=== PATIENT | female | born 1955 | race Caucasian/White ===

== ENCOUNTER → 2018-04-07 16:15 | Outpatient (REF) | payer BC, SELFPAY ==
--- NOTE | 2018-04-07 16:00 | PAPFT_PTH ---
PATIENT: Norma Martinez LOC: [facility] U#:[id number] AGE/SX: 69/F ROOM: RE04/07/[address]: Luisa Moreno MD : [id number] BED: DIS: SPEC #: [id number] RECD: 04/07/18 18:01 STATUS: AKIRA UNGER #: [id number] KIMBERLY: 04/07/18 16:[address]: Luisa Moreno DEPT: [facility] Cytology RECD BY: Karly Almendarez ENTERED: 04/07/18 18:02 SP TYPE: PAPFT OTHR DR: Anna De León APRN Tissues: 1 - CX/ENDOCX FOR PAP SMEARS Procedures: PAP THIN PREP/UVM Screening HPV DNA PROBE Comments: [id number]
== END ==
LOC: LBN 16:15
PROVIDERS: PCP Nurse Practitioner Family; Visit Provider Obstetrics & Gynecology
DX: Z12.4 Encounter for screening for malignant neoplasm of cervix (principal); Z11.51 Encounter for screening for human papillomavirus (HPV)
CPT/HCPCS: 88142; 87624

== ENCOUNTER → 2018-05-04 01:22 | Outpatient (CLI) | payer BC, SELFPAY ==
--- NOTE | 2018-05-04 08:00 | DI.REPORT_ITS ---
SYMPTOMS/DIAGNOSIS: SCREENING, Z12.31 MAMMOGRAM: Mammograms were interpreted according to the usual protocol including computer analysis with CAD system, tomosynthesis and C view imaging. Comparison with prior examinations. Breast density C. No suspicious masses or microcalcifications are seen. There has been interval increase in size of the well circumscribed nodule in the central left breast. Ultrasound is recommended for further evaluation. No other suspicious masses or microcalcifications are seen. The skin and axilla are unremarkable. IMPRESSION: Additional left breast ultrasound is recommended for an increase in size of left breast nodule. Category O. Bi-RADS category C. The breasts are heterogeneously dense, which may obscure small masses. FINAL SA ASSESSMENT OF FINDINGS: Negative with benign findings. Category 2. Patient will receive a letter notifying them of these results.
== END ==
PROVIDERS: PCP Nurse Practitioner Family; Visit Provider Obstetrics & Gynecology
DX: Z12.31 Encounter for screening mammogram for malignant neoplasm of breast (principal); R92.8 Other abnormal and inconclusive findings on diagnostic imaging of breast
CPT/HCPCS: 77063; 77067

== ENCOUNTER → 2018-05-05 09:16 | Outpatient (CLI) | payer BC, SELFPAY ==
--- NOTE | 2018-05-05 09:51 | DI.REPORT_ITS ---
SYMPTOM/DIAGNOSIS: F/U MAMMO, INCREASE IN SIZE OF NODULE LEFT BREAST ULTRASOUND: There is a well circumscribed, ovoid cyst just lateral to the nipple which measures 1.7 by 1.8 by 0.7 cm. No color is identified. The cyst appears to correspond in position with the mass recently described in the subareolar portion of the left breast. No solid mass is identified. IMPRESSION: Category 2 examination. Annual screening mammography is recommended. MQSA ASSESSMENT OF FINDINGS: Negative with benign findings. Category 2. Patient will receive a letter notifying them of these results.
== END ==
PROVIDERS: PCP Nurse Practitioner Family; Visit Provider Obstetrics & Gynecology
DX: Z12.31 Encounter for screening mammogram for malignant neoplasm of breast (principal); R92.8 Other abnormal and inconclusive findings on diagnostic imaging of breast; N60.02 Solitary cyst of left breast
CPT/HCPCS: 76642

== ENCOUNTER 2018-12-01 02:11 | Outpatient (CLI) | payer BC, SELFPAY ==
[2018-12-01 11:18] LABS: Anion Gap 7.8 mmol/L (3-11); BUN 18 mg/dL (7-18); CO2 33.2 mmol/L (21.0-32.0); Calcium 9.3 mg/dL (8.5-10.1); Chloride 101 mmol/L (98-107); Cholesterol 201 mg/dL (50-200); Glucose 98 mg/dL (70-100); HDL Cholesterol 65 mg/dL (40-60); LDL CHOLESTEROL 116 mg/dL (<100); Potassium 3.8 mmol/L (3.5-5.1); Sodium 142 mmol/L (136-145); Triglyceride 90 mg/dL (30-150)
[2018-12-02 12:15] LABS: HIV-1/2 Ag & Ab Screen Negative (NEGAT)
[2018-12-02 16:12] LABS: Lipoprotein (a) 120 mg/dL (<=30)
== END 2018-12-01 02:31 ==
PROVIDERS: PCP Nurse Practitioner Family; Visit Provider Nurse Practitioner Family
DX: E78.5 Hyperlipidemia, unspecified (principal); I10 Essential (primary) hypertension; Z11.4 Encounter for screening for human immunodeficiency virus [HIV]
CPT/HCPCS: 36415; 80048; 80061; 83695; 83721; 87389

== ENCOUNTER 2019-03-29 01:38 | Outpatient (CLI) | payer BC, SELFPAY ==
[2019-03-29 09:25] LABS: Calculated LDL 92 mg/dL; Cholesterol 168 mg/dL (50-200); HDL Cholesterol 59 mg/dL (40-60); Triglyceride 89 mg/dL (30-150)
[2019-03-30 14:48] LABS: Lipoprotein (a) 120 mg/dL (<=30)
== END 2019-03-29 01:58 ==
PROVIDERS: PCP Nurse Practitioner Family; Visit Provider Nurse Practitioner Family
DX: E78.41 Elevated Lipoprotein(a) (principal); E78.5 Hyperlipidemia, unspecified; Z00.01 Encounter for general adult medical examination with abnormal findings
CPT/HCPCS: 36415; 80061; 83695; 83721

== ENCOUNTER 2019-05-05 00:36 | Outpatient (CLI) | payer BC, SELFPAY ==
--- NOTE | 2019-05-05 08:08 | DI.MAMMO_ITS ---
SYMPTOM/DIAGNOSIS: SCREENING, Z12.31 MAMMOGRAMS: Mammograms were interpreted according to the usual protocol including computer analysis with CAD system, tomosynthesis and C view imaging. Comparison is made with prior examinations. Breast density, Category C. No suspicious masses or microcalcifications are seen. The nodular density in the central left breast is stable. The skin and axilla are unremarkable. IMPRESSION: No evidence for malignancy. Yearly mammography is recommended. Category 2. MQSA ASSESSMENT OF FINDINGS: Negative with benign findings. Category 2. Patient will receive a letter notifying them of these results. Bi-RADS category C. The breasts are heterogeneously dense, which may obscure small masses.
== END 2019-05-05 00:56 ==
PROVIDERS: PCP Nurse Practitioner Family; Visit Provider Obstetrics & Gynecology
DX: Z12.31 Encounter for screening mammogram for malignant neoplasm of breast (principal)
CPT/HCPCS: 77063; 77067

== ENCOUNTER 2020-05-16 02:22 | Outpatient (CLI) | payer BC, SELFPAY ==
[2020-05-16 08:26] LABS: Anion Gap 4.1 mmol/L (3-11); BUN 18 mg/dL (7-18); CO2 32.9 mmol/L (21.0-32.0); CREATININE 0.68 mg/dL (0.55-1.02); Calculated LDL 128 mg/dL (<100); Chloride 100 mmol/L (98-107); Cholesterol 207 mg/dL (<200); Glucose 97 mg/dL (74-106); HDL Cholesterol 60 mg/dL (40-60); Potassium 3.7 mmol/L (3.5-5.1); Sodium 137 mmol/L (136-145); Triglyceride 95 mg/dL (<150)
[2020-05-17 16:43] LABS: Lipoprotein (a) 145 mg/dL (<=30)
== END 2020-05-16 02:42 ==
PROVIDERS: PCP Nurse Practitioner Family; Visit Provider Nurse Practitioner Family
DX: I10 Essential (primary) hypertension (principal); E78.5 Hyperlipidemia, unspecified; E78.41 Elevated Lipoprotein(a)
CPT/HCPCS: 36415; 80048; 80061; 83695

== ENCOUNTER 2020-05-22 00:36 | Outpatient (CLI) | payer BC, SELFPAY ==
--- NOTE | 2020-05-22 07:50 | DI.MAMMO_ITS ---
EXAM: MG MAMMO SCREENING CLINICAL HISTORY: screening TECHNIQUE: Mammograms were interpreted according to the usual protocol including computer analysis w [facility] CAD system, tomosynthesis and C-view imaging. COMPARISON: FINDINGS: The breasts are heterogeneously dense. There is 23 millimeter in diameter well-circumscribed lobulat ed left breast mass seen centrally which is unchanged in appearance comparison with previous examinat ion of April 2019. no new mass or clumped microcalcification identified in either breast. No other significant change. IMPRESSION: No specific evidence of malignancy at this time. Follow-up mammogram requested in 12 months to derrell w stable probably benign left breast mass BI-RADS Cat 2 - Benign Findings Breast Density - Category C - Heterogeneously dense
== END 2020-05-22 00:56 ==
PROVIDERS: PCP Nurse Practitioner Family; Visit Provider Nurse Practitioner Family
DX: Z12.31 Encounter for screening mammogram for malignant neoplasm of breast (principal); R92.2 Inconclusive mammogram; N63.20 Unspecified lump in the left breast, unspecified quadrant
CPT/HCPCS: 77063; 77067

== ENCOUNTER 2020-05-24 04:24 | Outpatient (CLI) | payer BC, SELFPAY ==
[2020-05-24 08:23] LABS: ALT 33 U/L (14-59); AST 20 U/L (15-37); Alkaline Phosphatase 50 U/L (46-116); Bilirubin, Direct 0.18 mg/dL (0.00-0.20); Total Protein 6.9 g/dL (6.4-8.2)
== END 2020-05-24 04:44 ==
PROVIDERS: PCP Nurse Practitioner Family; Visit Provider Nurse Practitioner Family
DX: Z51.81 Encounter for therapeutic drug level monitoring (principal)
CPT/HCPCS: 36415; 80076

== ENCOUNTER 2020-11-18 12:20 | Emergency (ER) | payer OTHER, SELFPAY ==
[2020-11-18 12:27] VITALS: BP 122/75; PULSE 100; RESP 18; TEMP 37.1; O2SAT 96
--- NOTE | 2020-11-18 12:30 | DI.RAD_ITS ---
EXAM: XR ANKLE LT COMPLETE CLINICAL HISTORY: pain, swelling TECHNIQUE: COMPARISON: No exams were available for comparison FINDINGS: Three views were obtained. There is a spiral fracture of the distal fibula extending into the region of the tibiofibular joint. There is an associated posterior malleolar fracture of the tibia which i s mildly displaced. The ankle mortise appears fairly well maintained. Nondisplaced medial malleolar fracture not excluded. IMPRESSION: Bimalleolar versus trimalleolar fracture, additional radiographic views or CT may be obtained to eval uate possible very subtle medial malleolar fracture. RADIATION DOSE DELIVERED: Total DLP
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
[2020-11-18] MEDS: Acetaminophen 325 MG TAB 650 MG PO (13:08)
--- NOTE | 2020-11-18 13:57 | DI.VRAD_ITS ---
PROCEDURE INFORMATION: Exam: XR Left Ankle Exam date and time: 11/18/2020 1:34 PM Age: 64 years old Clinical indication: Injury or trauma; Fall; Blunt trauma; Ankle; Left TECHNIQUE: Imaging protocol: XR Left ankle. Views: 3 or more views. COMPARISON: No relevant prior studies available. FINDINGS: Bones/joints: There is an oblique fracture of the distal fibula. There is slight lateral displacement of the distal fracture fragment. There is fracture of the distal tibia/ posterior malleolus. There is possible subtle nondisplaced fracture of the medial malleolus. Joint effusion is seen in the ankle Soft tissues: There is marked soft tissue swelling of the ankle. IMPRESSION: Fracture of the distal fibula, and the posterior malleolus. Probable subtle nondisplaced fracture medial malleolus. Marked soft tissue swelling Dictated and Authenticated by: Amy Galvez MD. Ordering:YENI Hidalgo MD
[2020-11-18 15:08] VITALS: BP 114/68; PULSE 97; RESP 18; O2SAT 95
== END 2020-11-18 15:06 | disposition home or self-care (01) ==
PROVIDERS: Emergency Provider Student in an Organized Health Care Education/Training Program; PCP Nurse Practitioner Family
DX: S82.842A Displaced bimalleolar fracture of left lower leg, initial encounter for closed fracture (principal); V86.52XA Driver of snowmobile injured in nontraffic accident, initial encounter
CPT/HCPCS: 29515; 99283; 73610

== ENCOUNTER 2020-11-20 11:37 | Outpatient (CLI) | payer OTHER, SELFPAY ==
--- NOTE | 2020-11-20 11:30 | DI.RAD_ITS ---
EXAM: XR ANKLE LT COMPLETE CLINICAL HISTORY: left ankle pain TECHNIQUE: COMPARISON: CR,XR XR ANKLE LT COMPLETE from 11/18/2020 FINDINGS: Three views were obtained. The ankle is in cast. Previously described tibiofibular fracture is agai n noted, no gross interval change in alignment of fracture fragments comparison with examination of M arch 14th. IMPRESSION: RADIATION DOSE DELIVERED: Total DLP
--- NOTE | 2020-11-20 11:30 | DI.RAD_ITS ---
EXAM: XR WRIST LT COMPLETE CLINICAL HISTORY: wrist pain TECHNIQUE: COMPARISON: No exams were available for comparison FINDINGS: Three views were obtained. Carpal alignment appears within normal limits. No focal bony abnormality seen. IMPRESSION: Negative examination of the wrist. RADIATION DOSE DELIVERED: Total DLP
== END 2020-11-20 11:38 | disposition home or self-care (01) ==
LOC: DIORS 11:38
PROVIDERS: PCP Nurse Practitioner Family; Referring Provider Nurse Practitioner Family; Visit Provider Student in an Organized Health Care Education/Training Program
DX: M25.532 Pain in left wrist (principal); S82.392A Other fracture of lower end of left tibia, initial encounter for closed fracture; S82.492A Other fracture of shaft of left fibula, initial encounter for closed fracture
CPT/HCPCS: 73110; 73610

== ENCOUNTER 2020-11-20 12:45 | Outpatient (CLI) | payer OTHER, SELFPAY ==
[2020-11-20 13:18] LABS: Source Nasal/Nares
[2020-11-20 21:41] LABS: COVID-19 PCR Negative (Negative)
== END 2020-11-20 12:46 | disposition home or self-care (01) ==
PROVIDERS: PCP Nurse Practitioner Family; Visit Provider Student in an Organized Health Care Education/Training Program
DX: Z20.822 Contact with and (suspected) exposure to COVID-19 (principal); Z01.818 Encounter for other preprocedural examination
CPT/HCPCS: 87635

== ENCOUNTER 2020-11-23 11:03 | Day surgery (SDC) | payer OTHER, SELFPAY ==
--- NOTE | 2020-11-23 11:00 | DI.RAD_ITS ---
EXAM: XR ANKLE LT 2V CLINICAL HISTORY: LEFT ANKLE FRACTURE. TECHNIQUE: 2D and realtime digital imaging was performed. COMPARISON: CR XR ANKLE LT COMPLETE from 11/20/2020 CR XR ANKLE LT COMPLETE from 11/20/2020 FINDINGS: Fluoroscopy was provided in the OR for Dr. Denis. Hard copy images show placement of a screw and deniz te over the distal fibula for fracture fixation. The fracture alignment appears anatomic. Please see procedure note for details. RADIATION DOSE DELIVERED: Fluoro time 30.3 seconds. 0.62 mGy cumulative dose.
[2020-11-23 11:19] VITALS: BP 135/73; PULSE 94; RESP 19; TEMP 36.1; O2SAT 95
[2020-11-23] MEDS: Lactated Ringers 1,000 ML 100 ML IV (11:45)
[2020-11-23] MEDS: ceFAZolin 2 GM/50 ML BAG IVPB (12:24)
--- NOTE | 2020-11-23 14:12 | PDOC.DSDIS_ITS ---
Discharge Plan Disposition Patient Disposition: HOME Condition: Stable Discharge Details Reason For Visit: Left ankle surgery Attending Provider: Abner Denis Primary Care Provider: Anna De León Home Meds and New Rx's Prescriptions: New aspirin 81 mg tablet,delayed release (DR/EC) 81 mg PO BID 30 Days Qty: 60 RF: 0 naproxen 250 mg tablet 250 - 500 mg PO BID PRN (Reason: Moderate pain or swelling) Qty: 60 RF: 0 oxycodone 5 mg tablet 5 - 10 mg PO Q4H PRN (Reason: moderate to severe pain) Qty: 16 RF: 0 Continued Estring 2 mg (7.5 mcg /24 hour) ring 1 vag ring [id number] [id number] Qty: 1 RF: 4 ezetimibe [Zetia] 10 mg tablet 10 mg PO DAILY Qty: 90 RF: 3 calcium carb and citrate-vitD3 1 EACH tablet extended release 1 ea PO DAILY RF: 0 Probiotic 1 EACH capsule 2 ea PO DAILY RF: 0 Varicella-Zoster Ge/As01b/Pf [Shingrix Vial Kit] 50 MCG INJ 50 mcg IM ONCE Qty: 1 RF: 1 atorvastatin 80 mg tablet 80 mg PO DAILY Qty: 90 RF: 3 lisinopril 10 mg tablet 10 mg PO DAILY Qty: 90 RF: 3 estradiol 10 mcg tablet 10 mcg VG ONCE PRN (Reason: vaginal atrophy) Qty: 10 RF: 4 hydrochlorothiazide 25 mg tablet 25 mg PO QAM Qty: 90 RF: 3 Discontinued aspirin 81 MG tablet,delayed release (DR/EC) 81 mg PO DAILY RF: 0 Discharge Instructions Additional Instructions: Surgery: Left ankle open reduction internal fixation Activity: Non-weightbearing as best possible with crutches or walker. Recommend elevation to minimize swelling and discomfort. Please perform daily motion to all toes to prevent stiffness and increase circulation. You may rest the splint on the ground for stance and balance. A physical therapy prescription will be provided separately in the office at follow-up if needed. Prescriptions: Aspirin 81 mg take 1 twice daily to prevent a blood clot 30 days Naproxen 250 mg take 1-2 every 12 hours with a meal as needed for moderate pain Oxycodone 5 mg take 1-2 every 4-6 hours as needed for severe pain You may use [id number] Tylenol (acetaminophen) as needed for mild pain. These pain medications may be taken all at once or in different combinations as needed. Also, recommend Colace (docusate) as a stool softener as surgery and pain medicine cause constipation. Dressings: Leave splint and dressing in place until follow-up. Keep clean and dry at all times. Follow-up: 10-[address] Denis Let us know right away if you develop any redness, drainage, fevers, chest pain, or trouble breathing. Do not drink alcohol or drive for at least 24 hours after anesthesia. Please call the office during business hours with any questions or concerns. Referrals: Abner Denis MD [ [facility] STAFF PHYSICIAN] - Equipment/Supplies: Splint Activity:: Elevate Remove Dressings/Wound Care:: Do Not Remove Shower/Bathe:: Cover Diet:: As Tolerated Discharge Orders Discharge Orders: Discharge Order (Routine); Ordered 11/23/20 Ordered By: Abner Denis DS: Diagnosis Discharge Diagnosis (1) Contusion of left wrist, initial encounter: Status: Acute (2) Bimalleolar fracture of left ankle: Status: Acute
--- NOTE | 2020-11-23 14:13 | W.PM.OP ---
Date of service: 11/23/20 Time of Service: 13:00 Operative Note Operative Note DATE OF PROCEDURE: 11/23/20 PRE-OP DIAGNOSIS: Left john ankle fx: Lateral and Posterior malleoli POST-OP DIAGNOSIS: same PROCEDURE: 1. Left john ankle ORIF lateral malleolus, CPT # 94081 2. Manual dorsiflexon external rotation stress radiographs of ankle joint for syndesmotic testing, CPT# 27423 SURGEON: Abner Denis TRAIN STATION AGENT: Jimena Davison ANESTHESIA TYPE: Local By Surgeon, General:No Airway and Primary Nerve Block Refer to Anesthesia Record ESTIMATED BLOOD LOSS: 10 TOURNIQUET TIME: 0 COMPLICATIONS: None Patient was transported to: PACU Patient's condition: stable Implants: Synthes 6-hole 1/3 tubular plate with 3x proximal 3.5mm cortex screws, 1x central 3.5mm cortex lag screw, and 2x distal 4.0mm cancellous screws Indications: Please see complete medical record for details. Findings: Stable syndesmosis. Posterior malleolus appropriately reduced after restoring fibular length. Procedure Description: In the operating room, general anesthesia was induced. The patient was positioned supine on the operating room table. All bony prominences were well-padded. Preoperative antibiotics were administered. The ankle was prepped and draped in the usual sterile fashion. The correct patient, procedure, and side of the procedure were all verified prior to incision. 20cc of 1% lidocaine was preinjected about the planned lateral longitudinal incision site, which was centered about the distal fibula fracture. Sharp dissection was carried down to bone with care to protect and retract transverse neurovacular structures. The periosteum was sharply elevated off the fracture ends, fracture site debrided of soft tissue, and the long oblique fracture reduced in a near anatomic fashion using bone clamps. The reduction was optimized for fibular length and rotation confimed under direct visualization and fluoroscopy. Intact perioseum was sharpy released from the lateral margin of the fibula for planned plate placement. An appropriately lengthed plate was chosen and applied to the lateral fibula slightly anterioly accounting for patient anatomy. A cortex screw was place proximal to the fracture site to reduce plate to bone and provisionally hold the plate centered proxmally and distally. The hole over the fracture was then drilled for a lag screw by technique for placement of a lag screw through the plate and across the fracture site. Both screws were then tightened. Direct visualization and fluoroscopy confirmed excellent reduction of fibula fracture and appropriate hardware placement. The ankle was then held in dorsiflexion and mortise comparison views obtained with manual external rotation stress applied, which showed no medial clear space widenening or loss of tib fib overlap so the decision was made to omit any syndesmotic fixation. Lateral XRs showed improved, good reduction of the small posterior malleolus fracture after reducing the fibula. The remaining two distal holes at the level of the tib fib joint were then drilled and filled with cancellous screws. The remaining two proximal holes were drilled and filed with bicortical cortex screws. Final XRs showed excellent alignment of the fractures and appropriate hardware placement. The wound was copiously irrigated with normal saline. Deep tissue was closed over the plate using 2-0 monocryl. Superficial tissue was irrigated. Subq was closed using 2-0 monocryl in a burried interrupted fashion. Skin closed using 3-0 nylon in horizontal mattress fashion. Incision covered with xeroform, dry 4x4 gauze, ABD pad, and wrapped in sterile soft roll. A short leg plaster splint was then applied about the ankle. The patient awoke from anesthesia without complication and was transferred to the recovery room in a stable condition.
[2020-11-23 14:39] VITALS: BP 115/75; PULSE 67; RESP 18; TEMP 36.1; O2SAT 99
[2020-11-23] MEDS: Acetaminophen 500 MG TAB 1000 MG PO (14:53)
[2020-11-23] MEDS: oxyCODONE 5 MG TAB PO (14:54)
[2020-11-23] MEDS: Bupivacaine 0.25% Pres-Free 30 ML VIAL (16:55)
[2020-11-23] MEDS: Bupivacaine LIPOSOME/PF 133 MG/10 ML VIAL IJ (16:56)
== END 2020-11-23 16:18 | disposition home or self-care (01) ==
PROVIDERS: PCP Nurse Practitioner Family; Visit Provider Student in an Organized Health Care Education/Training Program
PROC: (CPT 27814; principal; 2020-11-23 12:15)
DX: S97.02XA Crushing injury of left ankle, initial encounter (principal); S82.842A Displaced bimalleolar fracture of left lower leg, initial encounter for closed fracture; V86.92XA Unspecified occupant of snowmobile injured in nontraffic accident, initial encounter; G89.18 Other acute postprocedural pain
CPT/HCPCS: 27814; 77071; C1713; 76000; 76942; 73600; J0690; J1100; J1885; J2250; J2405; J2704

== ENCOUNTER 2020-12-05 09:59 | Outpatient (CLI) | payer OTHER, SELFPAY ==
--- NOTE | 2020-12-05 09:00 | DI.RAD_ITS ---
EXAM: XR ANKLE LT COMPLETE CLINICAL HISTORY: ORIF L ankle. TECHNIQUE: 2D digital imaging was performed. COMPARISON: CR XR ANKLE LT COMPLETE from 11/20/2020 FINDINGS: There has been interval ORIF with placement of a lateral fixation plate across the fibular fracture s ite secured by a total of 6 screws. There is satisfactory alignment of the fracture fragments. No w idening of the ankle mortise noted. Medial malleolus is intact. Posterior malleolar fracture appear s unchanged and without further displacement. IMPRESSION: DATA REPOSITORY: RADIATION DOSE DELIVERED:
== END 2020-12-05 10:00 | disposition home or self-care (01) ==
LOC: DIORS 09:59
PROVIDERS: PCP Nurse Practitioner Family; Referring Provider Nurse Practitioner Family; Visit Provider Physician Assistant
DX: S82.842D Displaced bimalleolar fracture of left lower leg, subsequent encounter for closed fracture with routine healing (principal)
CPT/HCPCS: 73610

== ENCOUNTER 2021-01-02 09:42 | Outpatient (CLI) | payer OTHER, SELFPAY ==
--- NOTE | 2021-01-02 09:45 | DI.RAD_ITS ---
EXAM: XR ANKLE LT COMPLETE CLINICAL HISTORY: f/u. Fracture TECHNIQUE: 2D digital imaging was performed. COMPARISON: CR XR ANKLE LT COMPLETE from 12/05/2020 FINDINGS: Lateral fixation plate across the distal fibular fracture site remains stable. Fracture line faintly visible. No displacement. Posterior malleolus fracture is also again noted with some healing and n o displaced and. Medial malleolus intact as is the talar dome. There is no widening of the mortise. IMPRESSION: DATA REPOSITORY: RADIATION DOSE DELIVERED:
== END 2021-01-02 09:43 | disposition home or self-care (01) ==
LOC: DIORS 09:42
PROVIDERS: PCP Nurse Practitioner Family; Referring Provider Nurse Practitioner Family; Visit Provider Student in an Organized Health Care Education/Training Program
DX: S82.492D Other fracture of shaft of left fibula, subsequent encounter for closed fracture with routine healing (principal); S82.842D Displaced bimalleolar fracture of left lower leg, subsequent encounter for closed fracture with routine healing
CPT/HCPCS: 73610

== ENCOUNTER 2021-02-06 09:35 | Outpatient (CLI) | payer OTHER, SELFPAY ==
--- NOTE | 2021-02-06 09:15 | DI.RAD_ITS ---
Exam(s) XR ANKLE LT COMPLETE EXAM: XR ANKLE LT COMPLETE CLINICAL HISTORY: f/u. TECHNIQUE: 2D digital imaging was performed. COMPARISON: CR XR ANKLE LT COMPLETE from 11/20/2020 CR XR ANKLE LT COMPLETE from 12/05/2020 CR XR ANKLE LT COMPLETE from 01/02/2021 FINDINGS: BONES: There are stable post operative changes present. No new fracture or dislocation. The posterio r malleolar and distal fibular fractures appear healed. There is mild disuse osteopenia present. JOINTS: The joint spaces are well maintained. No joint effusion is present. SOFT TISSUE: Mild soft tissue swelling of ankle. IMPRESSION: Stable postoperative changes. DATA REPOSITORY: RADIATION DOSE DELIVERED:
== END 2021-02-06 09:36 | disposition home or self-care (01) ==
LOC: DIORS 09:35
PROVIDERS: PCP Nurse Practitioner Family; Referring Provider Nurse Practitioner Family; Visit Provider Student in an Organized Health Care Education/Training Program
DX: S82.842D Displaced bimalleolar fracture of left lower leg, subsequent encounter for closed fracture with routine healing (principal); M79.89 Other specified soft tissue disorders
CPT/HCPCS: 73610

== ENCOUNTER 2021-04-29 09:53 | Outpatient (REF) | payer OTHER, SELFPAY ==
--- NOTE | 2021-04-29 08:15 | PAPFT_PTH ---
PATIENT: Norma Martinez LOC: [facility] U#:[id number] AGE/SX: 65/F ROOM: RE04/29/[address]: ANDERSON Haider : [id number] BED: DIS: 04/29/2021 SPEC #: [id number] RECD: 04/29/21 12:55 STATUS: AKIRA REQ #: [id number] KIMBERLY: 04/29/21 08:[address]: Maria Teresa Kinney DEPT: [facility] Cytology RECD BY: Karly Almendarez ENTERED: 04/29/21 12:55 SP TYPE: PAPFT OTHR DR: Anna De León APRN Tissues: 1 - CX/ENDOCX FOR PAP SMEARS Procedures: PAP THIN PREP/UVM Screening HPV DNA PROBE Comments: [id number]
== END 2021-04-29 09:54 | disposition home or self-care (01) ==
LOC: LBN 09:53
PROVIDERS: PCP Nurse Practitioner Family; Visit Provider Nurse Practitioner Family
DX: Z12.4 Encounter for screening for malignant neoplasm of cervix (principal); Z11.51 Encounter for screening for human papillomavirus (HPV); Z01.419 Encounter for gynecological examination (general) (routine) without abnormal findings
CPT/HCPCS: 88142; 87624

== ENCOUNTER 2021-05-23 02:05 | Outpatient (CLI) | payer OTHER, SELFPAY ==
--- NOTE | 2021-05-23 10:30 | DI.MAMMO_ITS ---
Exam(s) MAMMO SCREENING EXAM: MAMMO SCREENING CLINICAL HISTORY: screening TECHNIQUE: Bilateral full field digital CC and MLO mammographic images were obtained with 3D tomosyn thesis and utilizing computer aided detection (CAD). COMPARISON: Available for comparison. FINDINGS: Masses/Architectural Distortion: None seen. There is a stable well-circumscribed nodule in the centra l outer left breast. Microcalcifications: No suspicious pleomorphic-type are seen. Skin Thickening/Nipple Retraction: None. IMPRESSION: 1. No significant interval change with no specific features of malignancy noted. 2. Unless there is more urgent need, screening mammography is recommended, as per [place] [employer] guidelines. BI-RADS Category 2 - Benign Findings Breast Density - Category C - Heterogeneously dense Breast density category C or D implies that the patient has dense breast tissue. Dense breast tissue is very common and is not abnormal but dense breast tissue can make it harder to find cancer on a ma mmogram. Also, dense breast tissue may increase their breast cancer risk. This information about the result of the mammogram report was provided to the patient to raise their awareness. Use this report when you speak with the patient about their risks for breast cancer, which includes their family hist ory. At that time, you may recommend for more screening tests (Ultrasound or MRI) as they might be us eful based on their risk. A negative radiographic report should not delay biopsy if a dominant or clinically suspicious mass is present. Up to ten percent of cancers are not identified on mammography. A negative report may reinforce clinical impression. Adenosis and dense breasts may obscure an underlying neoplasm. False positive reports average 6 to 10%. Patient will receive a letter notifying them of these results.
== END 2021-05-23 02:25 ==
PROVIDERS: PCP Nurse Practitioner Family; Visit Provider Nurse Practitioner Family
DX: Z12.31 Encounter for screening mammogram for malignant neoplasm of breast (principal)
CPT/HCPCS: 77063; 77067

== ENCOUNTER 2021-07-09 02:16 | Outpatient (CLI) | payer OTHER, SELFPAY ==
[2021-07-09 09:08] LABS: Albumin 4.2 g/dL (3.4-5.0); Alkaline Phosphatase 58 U/L (46-116); BUN 21 mg/dL (7-18); Bilirubin, Total 0.9 mg/dL (0.2-1.0); CO2 31.4 mmol/L (21.0-32.0); CREATININE 0.6 mg/dL (0.55-1.02); Calculated LDL 68 mg/dL (<100); Chloride 103 mmol/L (98-107); Cholesterol 141 mg/dL (<200); Glucose 96 mg/dL (74-106); HDL Cholesterol 63 mg/dL (40-60); Potassium 3.7 mmol/L (3.5-5.1); Sodium 141 mmol/L (136-145); Triglyceride 54 mg/dL (<150)
[2021-07-09 09:09] LABS: ALT 32 U/L (14-59); AST 17 U/L (15-37); Anion Gap 6.6 mmol/L (3-11)
[2021-07-11 11:22] LABS: Lipoprotein (a) 303 nmol/L (<75)
== END 2021-07-09 02:17 | disposition home or self-care (01) ==
LOC: LBO 02:16
PROVIDERS: PCP Nurse Practitioner Family; Visit Provider Nurse Practitioner Family
DX: E78.5 Hyperlipidemia, unspecified; E78.41 Elevated Lipoprotein(a); I10 Essential (primary) hypertension
CPT/HCPCS: 36415; 80053; 80061; 83695

== ENCOUNTER → 2022-05-26 02:43 | Outpatient (CLI) | payer MEDICARE, BC, SELFPAY ==
--- NOTE | 2022-05-26 12:15 | DI.MAMMO_ITS ---
Exam(s) MAMMO SCREENING EXAM: MAMMO SCREENING CLINICAL HISTORY: screening TECHNIQUE: Mammograms were interpreted according to the usual protocol including computer analysis w [employer] CAD system, tomosynthesis and C-view imaging. COMPARISON: 2012 through 2020 FINDINGS: The breasts are composed of heterogeneously dense fibroglandular densities, Breast Density category C . No suspicious masses or suspicious microcalcifications are seen. A smoothly marginated nodule is aga in noted in the central left breast found previously to represent a cyst by ultrasound No skin thickening or abnormal axillary lymph nodes are seen. There has been no significant change from prior exams. IMPRESSION: BI-RADS Cat 2 - Benign Findings Yearly screening mammography is recommended. Breast Density Category C, heterogeneously Dense. The mammogram demonstrates the patient's breast tissue is dense. Dense breast tissue is very common a nd is not abnormal but dense breast tissue can make it harder to find cancer on a mammogram. Also, de nse breast tissue may increase breast cancer risk. This information about the result of the mammogram report was provided to the patient to raise their awareness. Use this report when you speak with the patient about their risks for breast cancer, which includes their family history. At that time, you may recommend additional screening tests (Ultrasound or MRI) as they might be useful based on their r isk. A negative radiographic report should not delay biopsy if a dominant or clinically suspicious mass is present. Up to ten percent of cancers are not identified on mammography. A negative report may reinforce clinical impression. Adenosis and dense breasts may obscure an underlying neoplasm. False positive reports average 6 to 10%.
== END ==
PROVIDERS: PCP Nurse Practitioner Family; Visit Provider Nurse Practitioner Family
DX: Z12.31 Encounter for screening mammogram for malignant neoplasm of breast (principal); R92.8 Other abnormal and inconclusive findings on diagnostic imaging of breast
CPT/HCPCS: 77063; 77067

== ENCOUNTER 2022-07-16 03:33 | Outpatient (CLI) | payer MEDICARE, BC, SELFPAY ==
[2022-07-16 08:14] LABS: ALT 27 U/L (14-59); AST 18 U/L (15-37); Albumin 4.2 g/dL (3.4-5.0); Alkaline Phosphatase 70 U/L (46-116); Anion Gap 6.5 mmol/L (3-11); BUN 19 mg/dL (7-18); Bilirubin, Total 1.2 mg/dL (0.2-1.0); CO2 32.5 mmol/L (21.0-32.0); CREATININE 0.7 mg/dL (0.55-1.02); Calcium 9.4 mg/dL (8.5-10.1); Calculated LDL 60 mg/dL (<100); Chloride 102 mmol/L (98-107); Cholesterol 141 mg/dL (<200); Estimated GFR 95.92 (mL/min/1.73m2); Glucose 101 mg/dL (74-106); HDL Cholesterol 68 mg/dL (40-60); Potassium 4.2 mmol/L (3.5-5.1); Sodium 141 mmol/L (136-145); Total Protein 7.6 g/dL (6.4-8.2); Triglyceride 68 mg/dL (<150)
== END 2022-07-16 03:34 | disposition home or self-care (01) ==
LOC: LBO 03:33
PROVIDERS: PCP Nurse Practitioner Family; Visit Provider Nurse Practitioner Family
DX: E78.5 Hyperlipidemia, unspecified (principal); I10 Essential (primary) hypertension; Z13.1 Encounter for screening for diabetes mellitus
CPT/HCPCS: 36415; 80053; 80061

== ENCOUNTER 2022-07-23 17:56 | Outpatient (REF) | payer MEDICARE, BC, SELFPAY ==
[2022-07-23 18:38] LABS: ALT 28 U/L (14-59); AST 20 U/L (15-37); Albumin 4.1 g/dL (3.4-5.0); Alkaline Phosphatase 60 U/L (46-116); Bilirubin, Direct 0.2 mg/dL (0.0-0.2); Bilirubin, Total 1.3 mg/dL (0.2-1.0); Total Protein 7.4 g/dL (6.4-8.2)
== END 2022-07-23 17:57 | disposition home or self-care (01) ==
LOC: LBN 17:56
PROVIDERS: PCP Nurse Practitioner Family; Visit Provider Nurse Practitioner Family
DX: R79.89 Other specified abnormal findings of blood chemistry (principal)
CPT/HCPCS: 80076

== ENCOUNTER 2022-08-07 04:01 | Outpatient (CLI) | payer MEDICARE, BC, SELFPAY ==
[2022-08-07 14:33] LABS: Abs Immature Grans 0.02 10^3/uL (0.0-0.06); Absolute Basophil Count 0.11 10^3/uL (0.0-0.2); Absolute Eosinophil Count 0.29 10^3/uL (0.0-0.7); Absolute Lymphocyte Count 3.07 10^3/uL (1.2-3.4); Absolute Monocyte Count 0.57 10^3/uL (0.1-0.8); Absolute Neutrophil Count 5.15 10^3/uL (1.2-6.7); Basophils % 1.2; Eosinophils % 3.1; HCT 41.6 % (36.0-46.0); HGB 13.6 g/dL (11.2-15.7); Immature Grans % 0.2; Lymphocytes % 33.3; MCH 29.5 pg (27.0-33.0); MCHC 32.7 % (32.0-36.0); MCV 90 fL (80-95); MPV 9.1 fL (8.0-11.0); Monocytes % 6.2; Platelet Count 261 10^3/uL (130-400); RBC 4.61 10^6/uL (3.93-5.22); RDW 11.7 % (11.7-14.6); RDW-SD 38.5 fL; Reticulocyte 1.2 % (0.5-2.4); WBC 9.21 10^3/uL (4.4-10.8)
[2022-08-07 15:23] LABS: LDH 167 U/L (81-234)
== END 2022-08-07 04:02 | disposition home or self-care (01) ==
PROVIDERS: PCP Nurse Practitioner Family; Visit Provider Nurse Practitioner Family
DX: E80.6 Other disorders of bilirubin metabolism (principal); I10 Essential (primary) hypertension; E78.5 Hyperlipidemia, unspecified; R79.89 Other specified abnormal findings of blood chemistry
CPT/HCPCS: 36415; 83615; 85025; 85045

== ENCOUNTER 2022-09-12 01:06 | Outpatient (CLI) | payer MEDICARE, BC, SELFPAY ==
--- NOTE | 2022-09-12 07:45 | DI.DEXA_ITS ---
Exam(s) XR DEXA BONE DENSITY W/WO ASTON EXAM: XR DEXA BONE DENSITY W/WO ASTON CLINICAL HISTORY: screening for osteoporosis IN POSTMENOPAUSAL WOMAN,Z78.0 TECHNIQUE: [employer] C densitometer analysis of left hip, lumbar spine and left forearm. COMPARISON: No exams were available for comparison FINDINGS: Lateral view of the thoracic and lumbar spine shows no evidence of compression fractures. Bone mineral density measurements of the lumbar spine correspond to a total T-score of -2.3, in the osteopenic range. Bone mineral density measurements of the left hip correspond to a total T-score of -2.3. The femora l neck T-score is -3.4, in the osteoporotic range.. The right forearm bone mineral density measurements correspond to a T-score of the distal 3rd of -3.0 , in the osteoporotic range. . IMPRESSION: Osteoporosis of the left hip and right forearm. Osteopenia of the lumbar spine.
== END 2022-09-12 01:26 ==
LOC: DI 01:07
PROVIDERS: PCP Nurse Practitioner Family; Visit Provider Nurse Practitioner Family
DX: M81.0 Age-related osteoporosis without current pathological fracture (principal); M85.88 Other specified disorders of bone density and structure, other site; Z78.0 Asymptomatic menopausal state
CPT/HCPCS: 77080

== ENCOUNTER 2023-07-29 03:55 | Outpatient (CLI) | payer MEDICARE, BC, SELFPAY ==
[2023-07-29 09:10] LABS: ALT 84 U/L (14-59); AST 45 U/L (15-37); Alkaline Phosphatase 48 U/L (46-116); Anion Gap 4.9 mmol/L (3-11); BUN 20 mg/dL (7-18); Bilirubin, Total 0.9 mg/dL (0.2-1.0); CO2 31.1 mmol/L (21.0-32.0); CREATININE 0.6 mg/dL (0.55-1.02); Calcium 9.3 mg/dL (8.5-10.1); Calculated LDL 55 mg/dL (<100); Chloride 103 mmol/L (98-107); Cholesterol 123 mg/dL (<200); Estimated GFR 98.93 (mL/min/1.73m2); Glucose 99 mg/dL (74-106); HDL Cholesterol 56 mg/dL (40-60); Potassium 3.7 mmol/L (3.5-5.1); Sodium 139 mmol/L (136-145); Total Protein 7.5 g/dL (6.4-8.2); Triglyceride 64 mg/dL (<150)
[2023-07-29 09:37] LABS: Vitamin D 25 Total 47.8 ng/mL (30-100)
== END 2023-07-29 03:56 | disposition home or self-care (01) ==
LOC: LBO 03:55
PROVIDERS: PCP Nurse Practitioner Family; Visit Provider Nurse Practitioner Family
DX: I10 Essential (primary) hypertension (principal); Z13.1 Encounter for screening for diabetes mellitus; E55.9 Vitamin D deficiency, unspecified; E78.5 Hyperlipidemia, unspecified
CPT/HCPCS: 36415; 80053; 80061; 82306

== ENCOUNTER → 2023-09-17 02:51 | Outpatient (CLI) | payer MEDICARE, BC, SELFPAY ==
--- NOTE | 2023-09-17 12:30 | DI.MAMMO_ITS ---
Exam(s) MAMMO SCREENING EXAM: MAMMO SCREENING CLINICAL HISTORY: screening,z12.39. TECHNIQUE: Bilateral full field digital CC and MLO mammographic images were obtained with 3D tomosyn thesis and utilizing computer aided detection (CAD). COMPARISON: Prior mammograms were reviewed. FINDINGS: No new right breast findings. Lobulated nodular density in the left breast measuring 2.7 x 2.0 cm is unchanged and shown to be a cy st on prior ultrasound examination of 2018. it has been slowly increasing in size. There are no new spiculated masses nor malignant appearing microcalcification groups. There is no significant architectural distortion nor skin thickening-retraction. IMPRESSION: 1. No radiographic evidence of malignancy in the right breast. 2. 2.7 x 2.0 cm lobulated left breast nodule slightly increased in size from previous. This was show n to be a cyst on ultrasound examination of 2018. I feel that repeat ultrasound should be performed at this time to ensure that it is still remains a cyst. It has increased in size approximately 1 cm since 2018. BI-RADS Category 0 - Assessment Incomplete: Need additional imaging evaluation Breast Density - Category C - Heterogeneously dense Breast density Category C or D implies that the patient has dense breast tissue. Dense breast tissue can make it harder to find cancer on a mammogram. Dense breast tissue is also associated with an incr eased risk of breast cancer. This information about the result of the mammogram report was provided to the patient to raise their awareness. Use this report when you speak with the patient about their risks for breast cancer, which includes their family history. At that time, you may recommend additional screening tests (Ultrasoun d or MRI) as these tests may add significant information. A negative radiographic report should not delay biopsy if a dominant or clinically suspicious mass is present. Up to ten percent of cancers are not identified on mammography. A negative report may reinforce clinical impression. Adenosis and dense breasts may obscure an underlying neoplasm. False positive reports average 6 to 10%. Patient will receive a letter notifying them of these results.
== END ==
PROVIDERS: PCP Nurse Practitioner; Visit Provider Nurse Practitioner
DX: Z12.31 Encounter for screening mammogram for malignant neoplasm of breast (principal); R92.8 Other abnormal and inconclusive findings on diagnostic imaging of breast
CPT/HCPCS: 77063; 77067

== ENCOUNTER → 2023-09-21 04:38 | Outpatient (CLI) | payer MEDICARE, BC, SELFPAY ==
--- NOTE | 2023-09-21 | DI.US_ITS ---
Exam(s) US BREAST LT LIMITED EXAM: US BREAST LT LIMITED CLINICAL HISTORY: F/U MAMMO 09/17,NODULE/CYST SLIGHTLY INCREASED,? STILL CYST,r92.8 TECHNIQUE: Ultrasound left breast performed using standard protocol. COMPARISON: US LEFT BREAST ULTRASOUND from 05/05/2018 [facility] mammo screening from 05/05/2019 [facility] MAMMO SCREENING from 05/22/2020 US US OR ANESTHESIA from 11/23/2020 [facility] MAMMO SCREENING from 05/23/2021 [facility] MAMMO SCREENING from 09/17/2023 FINDINGS: 2.5 x 0.8 by 2.6 centimeter simple cyst in the 3 o'clock position 2 cm from the nipple. No solid mas ses, hypoechoic foci, areas of abnormal shadowing, or areas of skin thickening. IMPRESSION: Simple cyst corresponding to the mammographic abnormality. BI-RADS Category 2 - Benign Findings. Bilateral screening mammography recommended in 1 year. DATA REPOSITORY:
== END ==
PROVIDERS: PCP Nurse Practitioner; Visit Provider Nurse Practitioner
DX: R92.8 Other abnormal and inconclusive findings on diagnostic imaging of breast (principal); N60.02 Solitary cyst of left breast
CPT/HCPCS: 76642

== ENCOUNTER 2023-09-23 02:41 | Outpatient (CLI) | payer MEDICARE, BC, SELFPAY ==
[2023-09-23 09:17] LABS: ALT 35 U/L (14-59); AST 23 U/L (15-37); Albumin 3.9 g/dL (3.4-5.0); Alkaline Phosphatase 43 U/L (46-116); Bilirubin, Direct 0.2 mg/dL (0.0-0.2)
== END 2023-09-23 02:42 | disposition home or self-care (01) ==
LOC: LBO 02:41
PROVIDERS: PCP Nurse Practitioner; Referring Provider Nurse Practitioner; Visit Provider Nurse Practitioner
DX: R79.89 Other specified abnormal findings of blood chemistry (principal)
CPT/HCPCS: 36415; 80076

== ENCOUNTER → 2023-12-08 09:58 | Outpatient (BNVA) | payer MEDICARE, BC, SELFPAY | PROVIDERS: PCP Nurse Practitioner; Referring Provider Nurse Practitioner; Visit Provider Nurse Practitioner Adult Health | DX: G56.03 Carpal tunnel syndrome, bilateral upper limbs (principal) | CPT/HCPCS: 95911; 99215 ==

== ENCOUNTER → 2024-02-11 09:16 | Outpatient (BNVA) | payer MEDICARE, BC, SELFPAY | PROVIDERS: PCP Nurse Practitioner; Referring Provider Nurse Practitioner; Visit Provider Student in an Organized Health Care Education/Training Program | DX: G56.03 Carpal tunnel syndrome, bilateral upper limbs (principal) | CPT/HCPCS: 99213 ==

== ENCOUNTER 2024-03-30 06:30 | Day surgery (SDC) | payer MEDICARE, BC, SELFPAY ==
[2024-03-30 06:31] VITALS: BP 134/75; PULSE 70; RESP 16; TEMP 36.5; O2SAT 98
[2024-03-30] MEDS: Lactated Ringers 1,000 ML 80 ML IV (06:37)
--- NOTE | 2024-03-30 07:08 | HPE_ITS ---
Assessment and Plan Assessment and plan (1) Right carpal tunnel syndrome: Status: Acute Assessment and plan: Norma is a 68-year-old female who has carpal tunnel syndrome of both hands, much worse on the right side. She has failed nonoperative options here today for carpal tunnel release. I discussed the technical details of carpal tunnel release and that I perform an endoscopic release, but would make a larger, open, incision if necessary for visualization. I discussed the risks of the procedure to include, but not limited to, bleeding, infection, palmar pain, stiffness, damage to nerves, damage to vessels, damage to tendons, weakness, recurrence, and incomplete release. Given these risks, Norma desires to proceed. History of Present Illness History of Present Illness Chief Complaint: Right worse than left carpal tunnel syndrome Narrative: Norma is an active 68-year-old female who has carpal tunnel syndrome about both sides, worse on the right. Please of the previous office note for complete detailed history. She has failed nighttime splinting and other nonoperative options and is ready to move forward with a carpal tunnel release. Review of Systems All systems reviewed & are unremarkable except as noted in HPI and below PFSH All Active Problems (Updated 03/30/24 @ 07:10 by Henrry Schmid MD) Right carpal tunnel syndrome (Acute) Bilateral carpal tunnel syndrome (Acute) Osteoporosis (Chronic) 09/2022: bisphosphonate tx started --> plan for 2027 completion Elevated lipoprotein(a) (Chronic) Atrophic vaginitis (Chronic 03/31/16) Essential hypertension (Chronic 09/05/16) Hyperlipidemia (Chronic 09/05/16) 05/2020: LDL >100 w/ high potency statin and lipoprotein(a) --> added ezetimibe; 07/2021: LDL at goal with addition of ezetimibe Medical History COVID (~12/21/23) Surgical History Status post excision of lipoma (~1999) R side thorax History of 2 sections 1983 & 1991 Bimalleolar fracture of left ankle (11/17/20) S/P ORIF: 11/23/2020 Colonoscopy - IV Sedation (05/11/15) Dr. Pino Puckett (L)Knee Repair-Torn Meniscus (09/07/00) Family History Mother Essential hypertension Heart disease Neoplasm Breast CA dx'ed at age 78 (history of E2 intake following hysterectomy) Breast cancer Grandfather , ID at age 50. Heart disease Asthma Grandfather Heart disease Parkinsonism Grandmother , CHF at age 80. Heart disease CHF Father , Fall at age 82. 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[employer]) Pets and animals: Yes Pets and animals: cat(s) and dog(s) Sexually active: Yes Do you think of yourself as: straight/heterosexual Current gender identity: female What is your relationship status?: How often do you talk on the phone with friends or family?: three or more times per week How often do you get together with friends or relatives?: three or more times p er week How often do you attend mosque or lutheran services?: decline to answer Do you belong to any clubs or organized social groups?: yes Panel score (0-1 are the most socially isolated patients): 3 What type of physical activity do you participate in: walking and bicycling Duration: 30-45 minutes/day Frequency: 3-4 times per week Special natanael needs: No Seatbelt use: always Helmet use: Yes Drive intox or ride w/intox petroleum transport driver: No Water heater temp set <120 deg: Yes Working smoke detector in home: Yes Fire extinguisher in home: Yes Carbon monox detector in home: Yes Firearms in home: Yes Firearms unloaded and locked: Yes Do you feel safe at home: Yes Do you feel safe in your relationship?: Yes History History 3 Para Hx # Term Pregnancies 2 Multiple births Hx # Pregnancies Ectopic pregnancies AB induced Hx Number of Living Children AB spontaneous Meds Allergies and Home Medications Allergies Allergy/AdvReac Type Severity Reaction Status Date / Time amoxicillin Allergy Intermediate HIVES Verified 03/30/24 06:19 tioconazole (From Vagistat-1) Allergy Intermediate Burning Verified 03/30/24 06:19 HAYFEVER Allergy Intermediate CONGESTION Uncoded 03/30/24 06:19 Home Medications ?Medication ?Instructions ?Recorded ?Confirmed ?Type Lactobacillus acidophilus 10 2 ea PO DAILY 03/27/15 03/30/24 History billion cell capsule (Probiotic) naproxen 250 mg tablet 250 - 500 mg (1 - 2 x 250 mg) PO 11/23/20 03/30/24 Rx BID PRN Moderate pain or swelling #60 tabs calcium and Vitamin D3 See Rx Instructions .Route .COMPLEX 01/28/23 03/30/24 History cholecalciferol (vitamin D3) 25 25 mcg PO DAILY 01/28/23 03/30/24 History mcg (1,000 unit) capsule estradiol 2 mg (7.5 mcg/24 hour) 1 vag ring vaginal [id number] #1 ea 09/09/23 03/30/24 Rx vaginal ring (Estring) coQ10 (ubiquinol) 100 mg capsule 100 mg PO DAILY 09/14/23 03/30/24 History (Qunol Jamaal CoQ10) ezetimibe 10 mg tablet See Rx Instructions .Route 09/14/23 03/30/24 Rx .COMPLEX #90 tabs lisinopril 10 mg tablet 10 mg PO DAILY #90 tab-caps 09/14/23 03/30/24 Rx rosuvastatin 40 mg tablet 40 mg PO DAILY #90 tabs 09/14/23 03/30/24 Rx Exam Const General: cooperative, healthy appearing, comfortable and no acute distress Resp Effort & Inspection: normal respiratory effort Auscultation: clear to auscultation bilaterally Cardio Rate: regular rate Rhythm: regular rhythm Results Last Vital Signs Temp 36.5 C 03/30/24 06:31 Pulse 70 03/30/24 06:31 Resp 16 03/30/24 06:31 BP 134/75 03/30/24 06:31 Pulse Ox 98 03/30/24 06:31
--- NOTE | 2024-03-30 07:09 | W.ANESPRE ---
General Info Date of Service Date Performed: 03/30/24 Height: 5 ft 3 in Weight: 56.699 kg Body Mass Index (BMI): 22.1 Surgical Procedure: Operation Date: 03/30/24 07:40 Proposed Procedure Side Surgeon p Wrist ECTR Right Henrry Schmid MD Actual Procedure Side Surgeon p Wrist ECTR Right Henrry Schmid MD Pre-Op Diagnosis Post-Op Diagnosis R Carpal Tunnel Meds Allergies and Home Medications Allergies Allergy/AdvReac Type Severity Reaction Status Date / Time amoxicillin Allergy Intermediate HIVES Verified 03/30/24 06:19 tioconazole (From Vagistat-1) Allergy Intermediate Burning Verified 03/30/24 06:19 HAYFEVER Allergy Intermediate CONGESTION Uncoded 03/30/24 06:19 Home Medication ?Medication ?Instructions ?Recorded Lactobacillus acidophilus 10 2 ea PO DAILY 03/27/15 billion cell capsule (Probiotic) naproxen 250 mg tablet 250 - 500 mg (1 - 2 x 250 mg) PO 11/23/20 BID PRN Moderate pain or swelling #60 tabs calcium and Vitamin D3 See Rx Instructions .Route .COMPLEX 01/28/23 cholecalciferol (vitamin D3) 25 25 mcg PO DAILY 01/28/23 mcg (1,000 unit) capsule estradiol 2 mg (7.5 mcg/24 hour) 1 vag ring vaginal [id number] #1 ea 09/09/23 vaginal ring (Estring) coQ10 (ubiquinol) 100 mg capsule 100 mg PO DAILY 09/14/23 (Qunol Jamaal CoQ10) ezetimibe 10 mg tablet See Rx Instructions .Route 09/14/23 .COMPLEX #90 tabs lisinopril 10 mg tablet 10 mg PO DAILY #90 tab-caps 09/14/23 rosuvastatin 40 mg tablet 40 mg PO DAILY #90 tabs 09/14/23 Current Visit Medications: Current Medications Generic Name Dose Route Start Last Admin Trade Name Freq PRN Reason Stop Dose Admin Ringer's Solution 1,000 mls @ 80 mls/hr 03/30/24 06:00 03/30/24 06:37 IV 03/30/24 23:59 80 mls/hr INFUSION RIDGE Administration Cefazolin Sodium/Dextrose 2 gm in 50 mls @ 100 mls/hr 03/30/24 06:00 Ancef Duplex IVPB 03/30/24 23:59 PREOP RIDGE IV Miscellaneous Supplies 1 each 03/30/24 06:00 Iv Access IV 03/30/24 23:59 DIRECTED RIDGE Sodium Chloride 0 ml 03/30/24 06:00 Normal Saline Flush 10 Ml Syr IV 03/30/24 23:59 PRN PRN Sodium Chloride 0 ml 03/30/24 06:00 Normal Saline 10 Ml Vial IJ 03/30/24 23:59 DIRECTED PRN Sterile Water 0 ml 03/30/24 06:00 Water,Injection,Sterile 10 Ml Vial IJ 03/30/24 23:59 DIRECTED PRN PFSH Active Problems Active Problems: Problem Status Onset Code Bilateral carpal tunnel syndrome Acute G56.03 Osteoporosis Chronic M81.0 Elevated lipoprotein(a) Chronic E78.41 Atrophic vaginitis Chronic 03/31/16 N95.2 Essential hypertension Chronic 09/05/16 I10 Hyperlipidemia Chronic 09/05/16 E78.5 Medical History Medical History COVID (~12/21/23) Surgical History Surgical History Status post excision of lipoma (~1999) R side thorax History of 2 sections 1983 & 1991 Bimalleolar fracture of left ankle (11/17/20) S/P ORIF: 11/23/2020 Colonoscopy - IV Sedation (05/11/15) Dr. Pino Puckett (L)Knee Repair-Torn Meniscus (09/07/00) Tobacco Smoking/Tobacco Use Status: Never Passive smoking exposure: No Alcohol Alcohol Intake: current Alcohol intake frequency: 0-2 drinks per day Substance Use Substance use: Never Substance use type: does not use Prental History History 3 Para Hx # Term Pregnancies 2 Multiple births Hx # Pregnancies Ectopic pregnancies AB induced Hx Number of Living Children AB spontaneous Vital Signs and Lab Results Vital Signs Most Recent Vital Signs in EMR: Most Recent Vital Signs Temp Pulse Resp BP Pulse Ox 36.5 C 70 16 134/75 98 03/30/24 06:31 03/30/24 06:31 03/30/24 06:31 03/30/24 06:31 03/30/24 06:31 Lab Results Blood Type / Crossmatch: No Data to Display Complete Blood Count: No Data to Display Complete Metabolic Panel: No Data to Display Liver Function Panel: No Data to Display Coagulation Panel: No Data to Display Cardiac Panel: No Data to Display Arterial Blood Gas: No Data to Display Venous Blood Gas: No Data to Display Pancreas Panel: No Data to Display Thyroid Panel: No Data to Display Infectious Disease: No Data to Display Blood Cultures: No Data to Display Toxicology Panel: No Data to Display Anesthesia Assessment and Plan Anesthesia History Personal History: No History of Anesthesia Complications Family History: No Family History of Anesthesia Complications Exercise Tolerance Exercise Tolerance: Metabolic Equivalents>4 Pertinent Negatives Pertinent Negatives: No Symptoms of GERD, No Major Cardiovascular Symptoms or Complaints and No Major Pulmonary Symptoms or Complaints Cardiac & Pulmonary Exam Cardiac Exam: Normal S1/S2 Heart Sounds Pulmonary Exam: Clear Bilateral Breath Sounds Implantable Cardiac Device Does patient have a Pacemaker or an ICD?: No Airway Exam Known Difficult Airway: No Mallampati Class: 1 Mouth Opening: Normal (> 3cm) Thyromental Distance: Greater than 3 cm Neck Range of Motion: Full ROM Neck Circumference: Normal Teeth Condition: Normal Dentition ASA Classification ASA Score: ASA 2 Emergency Case?: No NPO Status NPO Status: NPO Clears >2 hours, Solids >8 hours Anesthesia Plan Resuscitation Status: Full Code Anesthesia Technique: General Anesthesia Airway Planned: Natural Airway Monitors Used: Standard Monitors
[2024-03-30 07:12] VITALS: BMI 22.1
--- NOTE | 2024-03-30 07:14 | W.PM.DSUDISC ---
Date of service: 03/30/24 Time of Service: 07:15 Discharge Plan Disposition Patient Disposition: Home Condition: Good Discharge Details Reason For Visit: R ECTR Attending Provider: Henrry Schmid Primary Care Provider: Itzel Medina Home Meds and New Rx's Prescriptions: New acetaminophen 500 mg tablet 1,000 mg PO TID Qty: 90 0RF hydrocodone-acetaminophen 5-325 mg tablet 1 tab PO Q6H PRN (Reason: pain) Qty: 4 0RF ibuprofen 600 mg tablet 600 mg PO TID PRN (Reason: pain) Qty: 90 0RF Continued cholecalciferol (vitamin D3) 25 mcg (1,000 unit) capsule 25 mcg PO DAILY calcium and Vitamin D3 See Rx Instructions .ROUTE .COMPLEX Rx Instructions: 630 mg/500 IU; coQ10 (ubiquinol) [Qunol Jamaal CoQ10] 100 mg capsule 100 mg PO DAILY rosuvastatin 40 mg tablet 40 mg PO DAILY Qty: 90 3RF lisinopril 10 mg tablet 10 mg PO DAILY Qty: 90 3RF ezetimibe 10 mg tablet See Rx Instructions .ROUTE .COMPLEX Qty: 90 3RF Dose Instruction: TAKE ONE TABLET BY MOUTH ONCE DAILY Rx Instructions: TAKE ONE TABLET BY MOUTH ONCE DAILY Probiotic 1 EACH capsule 2 ea PO DAILY Estring 2 mg (7.5 mcg /24 hour) ring 1 vag ring [id number] Qty: 1 4RF Rx Instructions: Place 1 ring PV every 90 days, remove and repeat naproxen 250 mg tablet 250 - 500 mg PO BID PRN (Reason: Moderate pain or swelling) Qty: 60 0RF Discharge Instructions Stand Alone Forms: Binu Burton Tunnel Release Activity:: Activity as Tolerated Remove Dressings/Wound Care:: 48 hours Shower/Bathe:: 48 hours Diet:: As Tolerated Discharge Orders Discharge Orders: Discharge Order (Routine); Ordered 03/30/24 Ordered By: Derrick Jackman DS: Diagnosis Discharge Diagnosis (1) Right carpal tunnel syndrome: Status: Acute
[2024-03-30] MEDS: ceFAZolin 2 GM/50 ML BAG IVPB (07:22)
[2024-03-30] MEDS: Lidocaine 1% Multi-Dose W/EPI 1/100,000 50 ML VIAL (07:31)
[2024-03-30 07:44] VITALS: BP 93/59; PULSE 79; RESP 18; TEMP 36.3; O2SAT 95
[2024-03-30 08:13] VITALS: BP 109/68; PULSE 63; RESP 16; TEMP 36.5; O2SAT 96
--- NOTE | 2024-03-30 08:28 | W.ANESPOSTOP ---
Postoperative Evaluation Date, Time and Location Date Performed: 03/30/24 Time Performed: 08:28 Patient Location: Day Surgery Unit Vital Signs Most Recent Imported Vital Signs: Most Recent Vital Signs Temp Pulse Resp BP Pulse Ox 36.5 C 63 16 109/68 96 03/30/24 08:13 03/30/24 08:13 03/30/24 08:13 03/30/24 08:13 03/30/24 08:13 Pain Score Most Recent Pain Score: Most Recent Pain Score Pain Level 0 03/30/24 08:13 Assessment Mental Status: Awake (Alert & Oriented to Patient Baseline) Airway and Respiratory Function: Patent airway with normal (patient baseline) respiratory exam Cardiovascular Function: Hemodynamically Stable Hydration Status: Adequately Hydrated Nausea & Vomiting: No Nausea or Vomiting Pain: Pt. Denies Any Pain Peripheral Nerve Block: Patient did not receive a nerve block
--- NOTE | 2024-03-30 09:22 | ROE_ITS ---
Date of service: 03/30/24 Time of Service: 07:25 Operative Note Operative Note DATE OF PROCEDURE: 03/30/24 PRE-OP DIAGNOSIS: Right Carpal Tunnel Syndrome POST-OP DIAGNOSIS: same PROCEDURE: Right Endoscopic Carpal Tunnel Release SURGEON: Henrry Schmid ANESTHESIA TYPE: General:No Airway Refer to Anesthesia Record ESTIMATED BLOOD LOSS: 0 PATHOLOGY: none sent TOURNIQUET TIME: 4 COMPLICATIONS: None Patient was transported to: same day Patient's condition: stable Indications: I have seen Norma in clinic for symptoms of carpal tunnel syndrome. The numbness, tingling, and pain limited function. Clinical exam findings with nerve conduction tests confirmed the diagnosis of carpal tunnel syndrome. Nonoperative measures such as bracing, time, activity modifications had been tried but disability and pain persisted. I discussed carpal tunnel release with the patient. I reviewed the risks of the procedure to include, but not limited to, bleeding, infection, pain, stiffness, incomplete release, damage to nerves or vessels, persistent numbness, recurrence. Despite these risks, the patient elected to proceed. Findings: There was tightened carpal tunnel. This was dilated and released successfully with the endoscopic with increased space within the tunnel. The antebrachial fascia was released proximally freeing the median nerve at the wrist. Procedure Description: Norma was greeted in the preoperative holding area where the correct side was identified and marked. The consent was reviewed with the patient and signed. The history and physical was updated. All questions were answered. She was taken back to the operating room. The patient was placed into the supine position on the operating room table with the right arm on an arm board. A nonsterile tourniquet was placed high onto the arm. All bony prominences were well padded. Prophylactic antibiotics in the form of Cefazolin were administered. The right arm was then prepped with Chloraprep and draped in a standard fashion with stockinette and extremity drape. A timeout to confirm correct identity, side and site, procedure, allergies, anesthesia, and medical concerns was performed. The surgical site was marked in the volar wrist creases in line with the radial border of the fourth ray. This area was anesthetized with approximately 6cc of 1% Lidocaine. The limb was then exsanguinated with an Esmarch. The skin was incised with a 15 blade, approximately 1cm. The skin only was cut and the deeper tissue was dissected bluntly with a tenotomy scissor, avoiding passing nerve and venous structures. The fascia was penetrated and opened bluntly. A two-prong skin hook was placed under this proximal fascial edge. A series of hamate finders were used to identify and dilate the carpal tunnel. Synovial elevator was used to free synovial attachments to the underside of the transverse carpal ligament. My thumb was kept in the palm to camille the distal extent of the carpal tunnel and correctly position the hand. The [employer] ndoscope was inserted without difficulty and without resistance. Excellent visualization showed horizontally running fibers of the transverse carpal ligament (TCL). The distal extent of the TCL was visualized and the end of the scope palpated with the thumb. The blade was elevated and withdrawn from distal to proximal. The TCL was split into two flaps. The endoscope was reinserted to confirm complete release and any remnant ligament was incised. The scope was withdrawn and the proximal aspect of the carpal tunnel was grossly inspected and appeared release with the median nerve visible. The antebrachial fascia at the level of the wrist was then freed from the overlying skin and then the underlying median nerve with blunt dissection. This was transected longitudinally for about 3cm proximal to the wrist incision. The wound was then irrigated with easy flow of irrigant distally and proximally. The incision was closed with a single 4-0 Nylon suture. The wound was dressed with Xeroform, Gauze, Kerlix and Boyd. The tourniquet was deflated with the initial dressing and held with some pressure. Blood flow returned easily to all digits with capillary refill less than 2 seconds. The patient tolerated the procedure well and was returned to the Same Day Surgery area in a stable condition suffering no known complication.
== END 2024-03-30 06:31 | disposition home or self-care (01) ==
LOC: SUR 09:15
PROVIDERS: PCP Nurse Practitioner; Visit Provider Student in an Organized Health Care Education/Training Program
PROC: 01N54ZZ Release Median Nerve, Percutaneous Endoscopic Approach (ICD-10-PCS; CPT 29848; principal; 2024-03-30 07:30)
DX: G56.01 Carpal tunnel syndrome, right upper limb (principal); I10 Essential (primary) hypertension
CPT/HCPCS: 29848; J0690; J2001; J2004; J2405; J2704

== ENCOUNTER → 2024-04-07 09:29 | Outpatient (BNVA) | payer MEDICARE, BC, SELFPAY | PROVIDERS: PCP Nurse Practitioner; Visit Provider Student in an Organized Health Care Education/Training Program | DX: Z47.89 Encounter for other orthopedic aftercare (principal) ==

== ENCOUNTER 2024-09-13 03:00 | Outpatient (CLI) | payer MEDICARE, BC, SELFPAY ==
[2024-09-13 08:45] LABS: ALT 34 U/L (14-59); AST 22 U/L (15-37); Alkaline Phosphatase 50 U/L (46-116); Anion Gap 6.4 mmol/L (3-11); BUN 18 mg/dL (7-18); CO2 30.6 mmol/L (21.0-32.0); CREATININE 0.7 mg/dL (0.55-1.02); Calcium 9.4 mg/dL (8.5-10.1); Calculated LDL 62 mg/dL (<100); Chloride 107 mmol/L (98-107); Cholesterol 149 mg/dL (<200); Estimated GFR 94.73 (mL/min/1.73m2); Glucose 103 mg/dL (74-106); HDL Cholesterol 69 mg/dL (40-60); Sodium 144 mmol/L (136-145); Total Protein 7.3 g/dL (6.4-8.2); Triglyceride 92 mg/dL (<150)
== END 2024-09-13 03:01 | disposition home or self-care (01) ==
PROVIDERS: PCP Nurse Practitioner; Visit Provider Nurse Practitioner
DX: I10 Essential (primary) hypertension (principal); E78.5 Hyperlipidemia, unspecified
CPT/HCPCS: 36415; 80053; 80061

== ENCOUNTER 2024-09-15 03:52 | Outpatient (CLI) | payer MEDICARE, BC, SELFPAY ==
--- NOTE | 2024-09-15 08:15 | DI.DEXA_ITS ---
Exam(s) XR DEXA BONE DENSITY W/WO ASTON EXAM: XR DEXA BONE DENSITY W/WO ASTON CLINICAL HISTORY: Check density,osteoporosis, m81.0 TECHNIQUE: COMPARISON: CR XR DEXA BONE DENSITY W/WO ASTON from 09/12/2022 FINDINGS: Lateral Spine Image: Unremarkable. No compression deformities identified. Left hip: Total T-Score: -2.4. This compares to -2.3 on the prior examination. Total Z-Score: -1.0 T- and Z-scores: Findings are consistent with osteopenia. There is again seen osteoporosis in the le ft femoral neck with a T-score of -3.6. This compares to -3.4 on the prior examination. Lumbar Spine: Total T-Score: -2.3. This is unchanged compared to the prior examination. Total Z-Score: -0.4 T- and Z-scores: Findings are consistent with osteopenia. Osteoporosis is seen in the L1 and L3 vert ebral bodies with T-scores of -2.7 and -2.6, respectively. There is osteoporosis seen in the right forearm with a total T-score of -3.2 and Z-score of -1.4. IMPRESSION: Osteoporosis is seen in the left femoral neck, the L1 and L3 vertebral bodies and the right forearm.
== END 2024-09-15 04:12 ==
LOC: DI 03:53
PROVIDERS: PCP Nurse Practitioner; Visit Provider Obstetrics & Gynecology
DX: M81.0 Age-related osteoporosis without current pathological fracture (principal)
CPT/HCPCS: 77080

== ENCOUNTER 2024-10-05 03:03 | Outpatient (CLI) | payer MEDICARE, BC, SELFPAY ==
--- NOTE | 2024-10-05 09:15 | DI.MAMMO_ITS ---
Exam(s) MAMMO SCREENING EXAM: MAMMO SCREENING CLINICAL HISTORY: screening TECHNIQUE: Bilateral full field digital CC and MLO mammographic images were obtained with 3D tomosyn thesis and utilizing computer aided detection (CAD). COMPARISON: Available for comparison. FINDINGS: Masses/Architectural Distortion: There is again seen a cyst in the central left breast. No new nodul es are seen. No areas of architectural distortion are present. Microcalcifications: No suspicious pleomorphic-type are seen. Skin Thickening/Nipple Retraction: None. IMPRESSION: 1. No significant interval change with no specific features of malignancy noted. 2. Unless there is more urgent need, screening mammography is recommended, as per [employer] guidelines. BI-RADS Category 2 - Benign Findings Breast Density - Category C - Heterogeneously dense Breast density category C or D implies that the patient has dense breast tissue. Dense breast tissue is very common and is not abnormal but dense breast tissue can make it harder to find cancer on a ma mmogram. Also, dense breast tissue may increase their breast cancer risk. This information about the result of the mammogram report was provided to the patient to raise their awareness. Use this report when you speak with the patient about their risks for breast cancer, which includes their family hist ory. At that time, you may recommend for more screening tests (Ultrasound or MRI) as they might be us eful based on their risk. A negative radiographic report should not delay biopsy if a dominant or clinically suspicious mass is present. Up to ten percent of cancers are not identified on mammography. A negative report may reinforce clinical impression. Adenosis and dense breasts may obscure an underlying neoplasm. False positive reports average 6 to 10%. Patient will receive a letter notifying them of these results.
== END 2024-10-05 03:23 ==
LOC: DI 03:03
PROVIDERS: PCP Nurse Practitioner; Visit Provider Obstetrics & Gynecology
DX: Z12.31 Encounter for screening mammogram for malignant neoplasm of breast (principal); R92.333 Mammographic heterogeneous density, bilateral breasts; D24.2 Benign neoplasm of left breast
CPT/HCPCS: 77063; 77067

== ENCOUNTER → 2025-05-04 08:06 | Outpatient (BNVA) | payer MEDICARE, BC, SELFPAY | PROVIDERS: PCP Nurse Practitioner; Referring Provider Nurse Practitioner; Visit Provider Physical Therapy Assistant | DX: Z12.11 Encounter for screening for malignant neoplasm of colon (principal) | CPT/HCPCS: S0285 ==

== ENCOUNTER 2025-05-25 09:10 | Day surgery (SDC) | payer MEDICARE, BC, SELFPAY ==
[2025-05-25 09:27] VITALS: BP 129/74; PULSE 75; RESP 16; TEMP 35.8; O2SAT 98
[2025-05-25] MEDS: Lactated Ringers 1,000 ML 80 ML IV (09:36)
--- NOTE | 2025-05-25 09:46 | ANES.PREOP_ITS ---
General Info Date of Service Date Performed: 05/25/25 Height: 5 ft 3 in Weight: 54.6 kg Body Mass Index (BMI): 21.3 Surgical Procedure: Operation Date: 05/25/25 10:50 Proposed Procedure Side Surgeon p Colonoscopy Miri Sexton MD Meds Allergies and Home Medications Allergies Allergy/AdvReac Type Severity Reaction Status Date / Time amoxicillin Allergy Intermediate HIVES Verified 05/25/25 09:26 grass pollen Allergy Intermediate hayfever Verified 05/25/25 09:26 s/s ragweed pollen Allergy Intermediate hayfever Verified 05/25/25 09:26 s/s tioconazole (From Vagistat-1) Allergy Intermediate Burning Verified 05/25/25 09:26 Home Medication ?Medication ?Instructions ?Recorded Lactobacillus acidophilus 10 2 ea PO DAILY 03/27/15 billion cell capsule (Probiotic) calcium and Vitamin D3 See Rx Instructions .Route . COMPLEX 01/28/23 coQ10 (ubiquinol) 100 mg capsule 100 mg PO DAILY 09/14 (Qunol Jamaal CoQ10) acetaminophen 500 mg tablet 1,000 mg (2 x 500 mg) PO T ID #90 03/30/24 tabs ibuprofen 600 mg tablet 600 mg PO TID PRN pain #90 t abs 03/30/24 ezetimibe 10 mg tablet See Rx Instructions .Route 0 09/19/24 .COMPLEX #90 tabs lisinopril 10 mg tablet 10 mg PO DAILY #90 tab-caps 09/19/24 rosuvastatin 40 mg tablet 40 mg PO DAILY #90 tabs 09/07 11/29 estradiol 2 mg (7.5 mcg/24 hour) 1 vag ring vaginal Q9 0days #1 ea 09/20/24 vaginal ring (Estring) bisacodyl 5 mg tablet,delayed 5 mg PO ONCE colonscopy bowel prep 05/04/25 release (Dulcolax (bisacodyl)) #8 tabs polyethylene glycol 3350 17 238 g PO ONCE colonoscopy prep 05/04/25 gram/dose oral powder #238 grams Current Visit Medications: Current Medications Generic Name Dose Route Start Last Admin Trade Name Freq PRN Reason Stop Dose Admin Ringer's Solution 1,000 mls @ 80 mls/hr 05/25/25 06:00 05/25/25 09:36 IV 05/25/25 23:59 80 mls/hr INFUSION RIDGE Administration IV Miscellaneous Supplies 1 each 05/25/25 06:00 Iv Access IV 05/25/25 23:59 DIRECTED RIDGE Sodium Chloride 0 ml 05/25/25 06:00 Normal Saline Flush 10 Ml Syr IV 05/25/25 23:59 PRN PRN Sodium Chloride 0 ml 05/25/25 06:00 Normal Saline 10 Ml Vial IJ 05/25/25 23:59 DIRECTED PRN Sterile Water 0 ml 05/25/25 06:00 Water,Injection,Sterile 10 Ml Vial IJ 05/25/25 23:59 DIRECTED PRN PFSH Active Problems Active Problems: Problem Status Onset Code Bilateral carpal tunnel syndrome Acute G56.03 Osteoporosis Chronic M81.0 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 Pino Puckett (L)Knee Repair-Torn Meniscus (09/07/00) Tobacco Smoking/Tobacco Use Status: Never Passive smoking exposure: No Alcohol Alcohol Intake: current Alcohol intake frequency: 0-2 drinks per day Substance Use Substance use: Never Substance use type: does not use Prental History History 3 Para Hx # Term Pregnancies 2 Multiple births Hx # Pregnancies Ectopic pregnancies AB induced Hx Number of Living Children AB spontaneous Vital Signs and Lab Results Vital Signs Most Recent Vital Signs in EMR: Most Recent Vital Signs Temp Pulse Resp BP Pulse Ox 35.8 C L 75 16 129/74 98 05/25/25 09:27 05/25/25 09:27 05/25/25 09:27 05/25/25 09:27 05/25/25 09:27 Anesthesia Assessment and Plan Anesthesia History Personal History: No History of Anesthesia Complications Family History: No Family History of Anesthesia Complications Exercise Tolerance Exercise Tolerance: Metabolic Equivalents>4 Pertinent Negatives Pertinent Negatives: No Symptoms of GERD Cardiac & Pulmonary Exam Cardiac Exam: Normal S1/S2 Heart Sounds Pulmonary Exam: Clear Bilateral Breath Sounds Implantable Cardiac Device Does patient have a Pacemaker or an ICD?: No Airway Exam Known Difficult Airway: No Mallampati Class: 1 Mouth Opening: Normal (> 3cm) Thyromental Distance: Greater than 3 cm Neck Range of Motion: Full ROM Neck Circumference: Normal Teeth Condition: Normal Dentition ASA Classification ASA Score: ASA 2 Emergency Case?: No NPO Status NPO Status: NPO Clears >2 hours, Solids >8 hours Anesthesia Plan Resuscitation Status: Full Code Anesthesia Technique: General Anesthesia Airway Planned: Natural Airway Monitors Used: Standard Monitors
[2025-05-25 09:53] VITALS: BMI 21.3
--- NOTE | 2025-05-25 11:03 | W.PM.DSUDISC ---
Date of service: 05/25/25 Discharge Plan Disposition Patient Disposition: Home Condition: Stable Discharge Details Attending Provider: Miri Sexton Primary Care Provider: Itzel Medina Recommendations for Follow Up Recommended tests to be ordered by follow up provider: timing of next colonoscopy - 10 years Home Meds and New Rx's Prescriptions: Continued calcium and Vitamin D3 See Rx Instructions .ROUTE .COMPLEX Rx Instructions: 630 mg/500 IU; coQ10 (ubiquinol) [Qunol Jamaal CoQ10] 100 mg capsule 100 mg PO DAILY Estring 2 mg (7.5 mcg /24 hour) ring 1 vag ring [id number] Qty: 1 4RF Rx Instructions: Place 1 ring PV every 90 days, remove and repeat rosuvastatin 40 mg tablet 40 mg PO DAILY Qty: 90 3RF lisinopril 10 mg tablet 10 mg PO DAILY Qty: 90 3RF ezetimibe 10 mg tablet See Rx Instructions .ROUTE .COMPLEX Qty: 90 3RF Dose Instruction: TAKE ONE TABLET BY MOUTH ONCE DAILY Rx Instructions: TAKE ONE TABLET BY MOUTH ONCE DAILY Probiotic 1 EACH capsule 2 ea PO DAILY acetaminophen 500 mg tablet 1,000 mg PO TID Qty: 90 0RF ibuprofen 600 mg tablet 600 mg PO TID PRN (Reason: pain) Qty: 90 0RF Discontinued bisacodyl [Dulcolax (bisacodyl)] 5 mg tablet,delayed release (DR/EC) 5 mg PO ONCE Qty: 8 0RF Rx Instructions: take per colonoscopy instructions polyethylene glycol 3350 17 gram/dose powder 238 g PO ONCE Qty: 238 0RF Rx Instructions: take per colonoscopy instructions Discharge Instructions Additional Instructions: Normal healthy colon and rectum. Zero polyps. Next colonoscopy due in 10 years. Stand Alone Forms: Anesthesia Discharge Inst., Colonoscopy Post Instructions, Ampaor Hoyt (DSU) Activity:: Activity as Tolerated Diet:: As Tolerated Discharge Orders Discharge Orders: Discharge Order (Routine); Ordered 05/25/25 Ordered By: Miri Sexton DS: Diagnosis Discharge Diagnosis (1) Encounter for screening colonoscopy: Status: Acute
--- NOTE | 2025-05-25 11:22 | W.COLOREPORT ---
Date of service: 05/25/25 Time of Service: 11:22 Colonoscopy Report Pre-op diagnosis general: Screening for colorectal cancer Post-op diagnosis procedure note: same Procedure: Colonoscopy Surgeon: Miri Sexton Anesthesia Type: General:No Airway Estimated blood loss (mL): 0 Pathology: none sent Complications: None Prep: Miralax/Dulcolax (excellent) Procedure Description: Informed consent was obtained and the patient was taken to the procedure area. The patient was placed in left lateral decubitus position on the procedure table. Timeout was performed. Anesthesia was induced. A lubricated colonoscope was inserted through the anus and passed to the cecum. The cecum was identified by the ileocecal valve and the appendiceal orifice. The scope was then slowly withdrawn and the colonic and rectal mucosa examined. There are no colon or rectal mass lesions, polyps, AVMs. There is no inflammatory change. No diverticulosis was seen. The scope was retroflexed in the anorectal junction examined. Uncomplicated internal hemorrhoids present. Assessment and plan; Normal screening colonoscopy. Average risk patient. Next screening colonoscopy will be due in 10 years.
[2025-05-25 11:28] VITALS: BP 106/64; PULSE 76; RESP 16; TEMP 36.2; O2SAT 97
--- NOTE | 2025-05-25 11:52 | W.ANESPOSTOP ---
Postoperative Evaluation Date, Time and Location Date Performed: 05/25/25 Time Performed: 11:52 Patient Location: Day Surgery Unit Vital Signs Most Recent Imported Vital Signs: Most Recent Vital Signs Temp Pulse Resp BP Pulse Ox 36.2 C L 76 16 106/64 97 05/25/25 11:28 05/25/25 11:28 05/25/25 11:28 05/25/25 11:28 05/25/25 11:28 Pain Score Most Recent Pain Score: Most Recent Pain Score Pain Level 0 05/25/25 11:28 Assessment Mental Status: Awake (Alert & Oriented to Patient Baseline) Airway and Respiratory Function: Patent airway with normal (patient baseline) respiratory exam Cardiovascular Function: Hemodynamically Stable Hydration Status: Adequately Hydrated Nausea & Vomiting: No Nausea or Vomiting Pain: Pt. Denies Any Pain Peripheral Nerve Block: Patient did not receive a nerve block
[2025-05-25 11:58] VITALS: BP 114/66; PULSE 66; RESP 14; TEMP 36.2; O2SAT 98
== END 2025-05-25 12:12 | disposition home or self-care (01) ==
LOC: SUR 09:11
PROVIDERS: PCP Nurse Practitioner; Visit Provider Surgery
PROC: 0DJD8ZZ Inspection of Lower Intestinal Tract, Via Natural or Artificial Opening Endoscopic (ICD-10-PCS; CPT 45378; principal; 2025-05-25 10:45)
DX: Z12.11 Encounter for screening for malignant neoplasm of colon (principal)
CPT/HCPCS: G0121; J2003; J2704

== ENCOUNTER 2025-06-09 13:50 | Outpatient (CLI) | payer MEDICARE, BC, SELFPAY ==
[2025-06-09 14:29] LABS: Albumin 4.0 g/dL (3.4-5.0); Anion Gap 9.5 mmol/L (3-11); BUN 21 mg/dL (7-18); CO2 31.5 mmol/L (21.0-32.0); Calcium 9.0 mg/dL (8.5-10.1); Chloride 103 mmol/L (98-107); Estimated GFR 94.15 (mL/min/1.73m2); Glucose 109 mg/dL (74-106); Potassium 3.5 mmol/L (3.5-5.1); Sodium 144 mmol/L (136-145); TSH 0.91 uIU/mL (0.36-3.74); Vitamin D 25 Total 44 ng/mL (30-100)
== END 2025-06-09 13:51 | disposition home or self-care (01) ==
LOC: LBO 13:50
PROVIDERS: PCP Nurse Practitioner; Visit Provider Student in an Organized Health Care Education/Training Program
DX: R53.83 Other fatigue (principal); M81.0 Age-related osteoporosis without current pathological fracture
CPT/HCPCS: 36415; 80069; 82306; 83970; 84443

== ENCOUNTER 2025-06-12 11:52 | Outpatient (REF) | payer MEDICARE, BC, SELFPAY ==
[2025-06-12 12:45] LABS: Creatinine,Urine 27.55 mg/dL
[2025-06-12 12:55] LABS: Creatinine,24hr Ur 0.83 g/24hr (0.60-1.80); Total Volume 3000 ml
[2025-06-14 09:41] LABS: Calcium Urine 5.5 mg/dL (See Note); Timed Urine Volume 3000 mL
== END 2025-06-12 11:53 | disposition home or self-care (01) ==
LOC: LBN 11:52
PROVIDERS: PCP Nurse Practitioner; Visit Provider Student in an Organized Health Care Education/Training Program
DX: M81.0 Age-related osteoporosis without current pathological fracture (principal); R53.83 Other fatigue
CPT/HCPCS: 81050; 82340; 82570

== ENCOUNTER 2025-07-19 16:01 | Outpatient (REF) | payer MEDICARE, BC, SELFPAY ==
[2025-07-19 20:45] LABS: HCT 38.8 % (36.0-46.0); HGB 12.3 g/dL (11.2-15.7); MCH 28.3 pg (27.0-33.0); MCHC 31.7 % (32.0-36.0); MCV 89 fL (80-95); MPV 9.6 fL (8.0-11.0); Platelet Count 224 10^3/uL (130-400); RBC 4.35 10^6/uL (3.93-5.22); RDW 11.7 % (11.7-14.6); RDW-SD 37.9 fL; WBC 6.89 10^3/uL (4.4-10.8)
[2025-07-19 21:14] LABS: Hemoglobin A1C 5.9 % (<5.7)
[2025-07-19 21:20] LABS: TSH (W/Ref FT4) 0.95 uIU/mL (0.55-4.78); Vitamin D 25 Total 40 ng/mL (30-100)
[2025-07-19 21:21] LABS: ALT 28 U/L (10-49); AST 22 U/L (<34); Albumin 4.5 g/dL (3.4-5.0); Alkaline Phosphatase 44 U/L (46-116); Anion Gap 5.8 mmol/L (3-11); BUN 22 mg/dL (9-23); Bilirubin, Total 0.90 mg/dL (0.2-1.2); CO2 28.2 mmol/L (20.0-31.0); Calcium 9.1 mg/dL (8.3-10.6); Chloride 106 mmol/L (98-107); Cholesterol 127 mg/dL (<200); Glucose 96 mg/dL (74-106); HDL Cholesterol 52 mg/dL (>40); Potassium 3.7 mmol/L (3.5-5.1); Sodium 140 mmol/L (136-145); Total Protein 6.7 g/dL (5.7-8.2)
== END 2025-07-19 16:02 | disposition home or self-care (01) ==
LOC: NCHCN 16:01
DX: Z13.0 Encounter for screening for diseases of the blood and blood-forming organs and certain disorders involving the immune mechanism (principal); E78.5 Hyperlipidemia, unspecified; M81.0 Age-related osteoporosis without current pathological fracture; Z13.29 Encounter for screening for other suspected endocrine disorder; Z13.1 Encounter for screening for diabetes mellitus; I10 Essential (primary) hypertension
CPT/HCPCS: 80053; 80061; 82306; 85027; 82043; 82570; 83036; 84443